=== PATIENT | female | born 1970 | race Caucasian/White ===

== ENCOUNTER 2016-12-16 16:29 | Inpatient (IN) | payer BC, MEDICARE, OTHER ==
--- NOTE | ~2016-12-16 | DS ---
Discharge Summary [place] [id number] [facility] [address] [facility] [address] NAME: AHMET CONNELL : 70 STATUS : DIS IN PAT#: [id number] AGE: 46 ADM/REG DATE : 12/16/16 MR#: [id number] REPORT SERV DATE: 12/20/16 DICTATED BY: DATE: REPORT STATUS : Draft TRANSCRIBED BY: MODL DATE: 12/19/16 ADMISSION DATE: 12/16/2016 DISCHARGE DATE: 12/19/2016 INCOMPLETE DICTATION CLR/JAC Robin Sultana NP / [id number] CC: MD Juan J Lazcano M.D.
--- NOTE | ~2016-12-16 | DS ---
Discharge Summary [facility] [address] [place]. [address] NAME: AHMET PRECIADO : 70 STATUS : DIS IN PAT#: [id number] AGE: 46 ADM/REG DATE : 12/16/16 MR#: [id number] REPORT SERV DATE: 12/22/16 DICTATED BY: DATE: REPORT STATUS : Draft TRANSCRIBED BY: MODL DATE: 12/19/16 ADMISSION DATE: 12/16/2016 DISCHARGE DATE: 12/19/2016 DISCHARGE DIAGNOSES: 1. Abdominal pain. 2. Diabetic gastroparesis. 3. Diabetes mellitus, type 2, this is uncontrolled with a hemoglobin A1c of 11.1. 4. Possible cellulitis around G-tube and J-tube. 5. Nausea and vomiting. CONSULTING PHYSICIANS: None. DISCHARGE MEDICATIONS: Include Cymbalta 60 mg p.o. daily, NovoLog sliding scale, Lantus 65 units subcu b.i.d., lithium carbonate ER 450 mg p.o. daily, Protonix 40 mg p.o. daily, Inderal 80 mg p.o. b.i.d., Xanax 2 mg p.o. t.i.d., Percocet 1 tablet p.o. three times daily p.r.n. for pain, Januvia 50 mg p.o. at bedtime. IMAGING: CT of the abdomen and pelvis with contrast, this did not demonstrate abscess around the G-tube or the J-tube, and otherwise, the CT scan was grossly normal. For full H and P, please refer to Dr. Dylan Oreilly's dictation on 12/16/2016. HOSPITAL COURSE/PROBLEM LIST: Initially, the patient was admitted with abdominal pain. She reported that she had some "pus" coming out her G-tube and J-tube sites and there was some redness. Dr. Oreilly noted in his H and P that the G-tube and J-tube sites had some fluid drainage around the hub of the tubes; however, there were no cellulitic changes in the abdominal wall. He did not note any pus either. During my physical exam over the course of her hospital stay, I did not note any pus either. She did have some redness at the site of her J-tube and G tube, but it was very localized, and as noted above, there was no abscess noted on the CT scan. She has been afebrile since admission as well as having a normal white count. Blood cultures were negative. She did have a wound culture of her G-tube that demonstrated Klebsiella pneumoniae, E. coli with ESBL as well as Staph species to be identified. The E. coli was multi-drug resistant, only susceptible to meropenem and amikacin. Since the patient did not have a fever, had a normal white blood cell count, and negative blood cultures, no other signs and symptoms of infection, I spoke with Dr. Abel Casarez with Infectious Disease. He concurred that it was likely a colonization and not causing an overt infection that it would be more harmful to the patient to start IV antibiotics than would be of benefit. So, the patient will follow up with her strip cutting machine operator, Dr. Guajardo at [facility]. We did consult strip cutting machine operator, Dr. Sagastume per the patient's request; however, she has been fired from his practice as well as multiple other practices for noncompliance. Yesterday, the patient developed severe nausea and vomiting. She was receiving Dilaudid IV for her abdominal pain. I discontinued this Dilaudid because I believe that it was worsening her gastroparesis and could have been the culprit for causing her nausea and vomiting. I also gave the patient Zofran IV as well as Compazine and finally Phenergan, which worked. She has not vomited since yesterday evening. Discharge Summary [address] [place]. [address] NAME: AHMET PRECIADO : 70 STATUS : DIS IN PAT#: [id number] AGE: 46 ADM/REG DATE : 12/16/16 MR#: [id number] REPORT SERV DATE: 12/22/16 DICTATED BY: DATE: REPORT STATUS : Draft TRANSCRIBED BY: MODL DATE: 12/19/16 The patient states that she feels better and would like to go home. As far as her diabetes mellitus, I checked an A1c, and it was 11.1. I discussed the importance of adhering to blood glucose control with the patient and explained that her gastroparesis would only get worse, and the myriad of other problems that an uncontrolled blood sugar can cause. She states understanding. I told the patient I wanted her to follow up with her primary care provider, Dr. Juan J Vazquez. She states that he would like to refer her to an iron guardrail installer. I encouraged her to make an appointment this week, she said it would not be a problem to get into his office. I also discussed the importance of cleaning around the sites of her G-tube and J-tube. It was explained to the patient that if she developed fevers, chills, nausea, and vomiting, to please return to the emergency department if needed. I will ask the unit controller to make an appointment with Dr. Guajardo for Ms. Preciado this week. She is hemodynamically stable at this time. Last blood pressure is 144/83, temperature 97.3, heart rate 69, respirations 12, O2 saturation 97% on room air. CLR/MODL Robin Sultana NP / [id number] CC: MD Juan J Lazcano M.D. Steven Kessler, MD
--- NOTE | ~2016-12-16 | HP ---
History And Physical [place] [address] [facility] [place]. [address] NAME: AHMET PRECIADO : 70 STATUS : ADM Bing PAT#: [id number] AGE: 46 ADM/REG DATE : 12/16/16 MR#: [id number] REPORT SERV DATE: 12/17/16 DICTATED BY: JAIR KESSLER DATE: 12/17/16 REPORT STATUS : Draft TRANSCRIBED BY: MODNeil DATE: 12/17/16 DATE OF ADMISSION: 12/16/2016 POINT OF ENTRY: [facility] Emergency Department. PRIMARY CARDIOTHORACIC ICU RN: Dr. Guajardo. CHIEF COMPLAINT: Abdominal pain and pus coming from around my G-tube. HISTORY OF PRESENT ILLNESS: Ms. Preciado is a 46-year-old female, well known to the Hospitalist Service with history of poorly-controlled insulin-dependent diabetes mellitus, type 2, with associated diabetic gastroparesis with chronic abdominal pain as well as gastrostomy and jejunostomy tube placement who presents to the emergency department with reports of a few day history of diffuse abdominal pain, also with associated pus coming from around her G- tube. The patient states she noted the pus coming from her G-tube about a few days ago. She denies any fevers, night sweats, or chills. She did not call any of her doctors thinking that she would "wait it out." Things did not improve prompting her presentation to the emergency department. The patient also notes some acute on chronic diffuse abdominal pain but denies any recent nausea or vomiting. Given the pus coming from her G-tube, she has not been using her J-tube for supplementary tube feedings; however, she does note she is still continuing to have gastric drainage from her G-tube, which she uses for gastric venting. Initial evaluation in the emergency department notable for vital signs that were unremarkable. Labs notable for a white count of 7000. However, blood sugar was elevated at 368. She was given a dose of vancomycin given her prior history of MRSA, admitted to the Hospitalist Service for further evaluation and management. Comprehensive review of systems otherwise negative unless listed in the history of present illness. PREVIOUS MEDICAL HISTORY: 1. Uncontrolled insulin-dependent diabetes mellitus type 2 with recent hemoglobin A1c of 10.4. 2. Diabetic gastroparesis requiring gastrostomy and jejunostomy tube placement. 3. Chronic abdominal pain. 4. History of drug-seeking behavior. 5. Bipolar disease. 6. Iron-deficiency anemia. 7. Anemia of chronic disease. 8. Hypertension. History And Physical [address] [address] NAME: AHMET PRECIADO : 70 STATUS : ADM Bing PAT#: [id number] AGE: 46 ADM/REG DATE : 12/16/16 MR#: [id number] REPORT SERV DATE: 12/17/16 DICTATED BY: JAIR KESSLER DATE: 12/17/16 REPORT STATUS : Draft TRANSCRIBED BY: MODNeil DATE: 12/17/16 9. Hyperlipidemia. 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 11.History of pancreatitis. 12.Depression. SURGICAL HISTORY: 1. Gastrostomy and jejunostomy tube placement and subsequent replacements for malfunction. 2. Abdominal hysterectomy and bilateral salpingo-oophorectomy. 3. Cholecystectomy. 4. Appendectomy. 5. Port-A-Cath placement. 6. Exploratory laparotomy and small-bowel resection for small bowel obstruction. ALLERGIES: 1. DEMEROL. 2. REGLAN. 3. TORADOL. 4. NSAIDS. 5. SULFA DRUGS. 6. MORPHINE. 7. DOXYCYCLINE. 8. RIFAMPIN. 9. ZOSYN. 10.LEVOFLOXACIN. 11.VANCOMYCIN. 12.STADOL. 13.IMITREX. HOME MEDICATIONS: 1. Xanax 2 mg t.i.d. 2. Cymbalta 60 mg daily. 3. Insulin sliding scale. 4. Lantus 65 units b.i.d. 5. [place] carbonate 450 mg daily. 6. Percocet 10/325 one tab t.i.d. 7. Protonix 40 mg daily. 8. Propranolol 80 mg b.i.d. 9. Januvia 50 mg at bedtime. SOCIAL HISTORY: Denies any tobacco, alcohol, or illicits. FAMILY HISTORY: Mother with pancreatic cancer. Father with history of congestive heart failure. LABS AND IMAGIN. White count 7.0, hemoglobin 9.5, hematocrit 29.8, and platelet count 261. 2. Sodium is 138, potassium 4.0, chloride 101, carbon dioxide 26, BUN 11, creatinine 0.86, History And Physical [address] [place]. [address] NAME: AHMET PRECIADO : 70 STATUS : ADM Bing PAT#: [id number] AGE: 46 ADM/REG DATE : 12/16/16 MR#: [id number] REPORT SERV DATE: 12/17/16 DICTATED BY: JAIR KESSLER DATE: 12/17/16 REPORT STATUS : Draft TRANSCRIBED BY: MODL DATE: 12/17/16 glucose is 360 and on recheck it is now 255, calcium is 8.5, protein 6.8, albumin is 3.1, bilirubin is 0.3, ALT is 15, AST 4, and alkaline phosphatase is 106. 3. Lipase is 200. 4. Lactic acid 2.3. 5. Urinalysis: Specific gravity is 1.023. No evidence of any infection. CT scan of the abdomen and pelvis shows no focal fluid collection. Does show postoperative bowel resections. No evidence of any obstruction. Did show a fatty liver as well as some right lower lobe airspace disease. Otherwise, no acute abdominopelvic pathology. PHYSICAL EXAMINATION: VITAL SIGNS: Temperature is 98.0 degrees Fahrenheit, pulse is 89, respirations 18, saturating 98% on room air. Blood pressure 120/75. GENERAL: The patient is slightly sedated and lethargic. She is a chronically ill-appearing female in no acute distress. Resting comfortably in bed. HEENT: Atraumatic and normocephalic. Moist mucous membranes. Pupils are equal, round, reactive to light and accommodation. Extraocular eye movements are intact. No scleral icterus. NECK: No jugular venous distention. No carotid bruits. CARDIAC: Regular rate and rhythm. No murmurs, rubs, or gallops. Normal S1, S2. LUNGS: Clear to auscultation bilaterally. No wheezes, rhonchi, or crackles. ABDOMEN: Hypoactive bowel sounds throughout. She is mildly tender to palpation over all quadrants. No rebound, guarding, or rigidity. She has a G-tube in place in the left upper quadrant and a J-tube in place in the left lower quadrant. Does have some apparent fluid around the hub of the G-tube but no surrounding cellulitic changes of the abdominal wall. EXTREMITIES: Warm and perfused. No cyanosis, clubbing, or edema. SKIN: Warm and dry. PSYCH: Affect is slightly sedated and lethargic. NEURO: Alert and oriented x3, however, sedated, lethargic, but answers questions well. Speech is somewhat slow. Cranial nerves 2 through 12 grossly intact. Speech is normal. Gait not assessed. ASSESSMENT: Ms. Preciado is a 46-year-old female who presents with abdominal pain, as well as purulent drainage from around her G-tube, concerning for possible G-tube infection. PROBLEM LIST: 1. Acute on chronic abdominal pain. 2. Possible G-tube infection. 3. Insulin-dependent diabetes mellitus type 2 with hyperglycemia. 4. Chronic abdominal pain with drug-seeking behavior. 5. Diabetic gastroparesis. PLAN: 1. Acute on chronic abdominal pain. We will continue the patient's home medications, and we will place her on some low-dose IV Dilaudid. However, we will not escalate any further at this time as she is currently sedated and lethargic after having received a total of 2 mg of Dilaudid as well as 50 mg of IV Benadryl and 12.[address] scan of pelvis was unremarkable. History And Physical [address] [address] NAME: AHMET PRECIADO : 70 STATUS : ADM Bing PAT#: [id number] AGE: 46 ADM/REG DATE : 12/16/16 MR#: [id number] REPORT SERV DATE: 12/17/16 DICTATED BY: JAIR KESSLER DATE: 12/17/16 REPORT STATUS : Draft TRANSCRIBED BY: JAC DATE: 12/17/16 2. Possible G-tube infection. The patient does have some purulent material from around her G-tube but no overlying skin changes concerning for abdominal wall cellulitis. We will follow up the blood as well as wound cultures, empirically place the patient on Rocephin and clindamycin given prior recent history of Klebsiella as well as MSSA wound culture results. 3. Insulin-dependent diabetes mellitus type 2 with hyperglycemia. The patient did receive 6 units of IV insulin in the emergency department with improvement of blood sugars to 255. We will continue the patient's long-acting insulin. Place her on a level 2 insulin sliding scale. 4. DVT prophylaxis. Lovenox subcu. CODE STATUS: The patient wished to be full code. JCB/MODL Jair Kessler MD / [id number] CC: MD Juan J Lazcano M.D.
[~2016-12-16 16:29] MED LIST: ACIDOPHILU2 PO; ALBUTEROL5 INH; AMARYL1 MG PO; AMIT50 PO; APRES50 PO; ASACOL PO; ATEN50 PO; BACTROCR TOP; BACTROINT TOP; BACTRONASA TOP; BALMEX11.3 % TOP; BUSPAR15 M1 PO; CANASA1SUP PR; CHLORDIAZEPOXIDE OR; CHLORPROMAZ200 MG PO; CLIDINIUM OR; COGEN1 PO; CPZ100 PO; CRESTOR5 MG PO; CYMBALTA20 PO; CYMBALTA60 PO; DIARRHEA MED; DIL2TAB PO; DIL4TAB PO; DOXYCYCL HYC100 M3 PO; DSS PO; DURA75 TOP; ENDOCET1 TA3 PO; ERYTHROCIN250 MG PO; ESKACR PO; ESTRADERM0.1 MG TOP; FARXIGA10 PO; FISH-EPA1000 MG PO; FLAG500TAB PO; FLORASTOR250 MG PO; FLUCON1 PO; FLUCON2 PO; GLUCOPHAGE1000 MG PO; GLUCPH PO; GLUCXL2.5 PO; H5 PO; HUMULIN R1 ML SC; HYCODAN1 M1 PO; HYDRALAZINE; HYDROCORT12 TOP; HYDROXYZ HCL25 MG OR; HYOMAX-FT0.125 MG PO; I40 PO; IMOD PO; INDE60 PO; INDE80 PO; ISOPTINSR PO; JANUVIA100 MG PO; JANUVIA50 PO; KADIAN10 MG PO; KLONO1 PO; KLONO5 PO; LANTUS SC; LANTUSCART SC; LEVEMIR SC; LEVSINTAB PO; LEVSINTAB SL; LIBRAX PO; LIPITOR20 PO; LISINOPRIL/HCTZ; LISINOPRIL40 MG PO; LOMOTILUDL PO; LOPID6 PO; MACROBID PO; MAGOX4 PO; MARI2.5 PO; MARINOL10 MG PO; MYCOSCROI TOP; NEUR100 PO; NEUR300 PO; NEUR600 PO; NEXIUM40 PO; NOVOLOG SC; NOVOPEN SC; OMNICEF300 PO; OPANA ER15 MG PO; OXYCCODUDL PO; OXYCOD PO; OXYCON10 PO; P10 PO; PCET PO; PERCOCET 10/3251 TAB PO; PERCOCET1 TA2 PO; PERCOCET1 TA4 PO; PHENERGAN PO; PR12.5R PR; PR25 PO; PREV30 PO; PRILOSEC40 MG PO; PRIN10 PO; PRIN20 PO; PRIN5 PO; PROTONIX PO; QUESTRAN4 GM PO; REG PO; REM15 PO; REMERON30 MG PO; RESTORIL30 MG PO; RIFADIN150 MG PO; ROBINUL FORT2 MG PO; ROXICODONE15 MG PO; ROXICODONE30 MG PO; SENTAB PO; SEROQUEL25 PO; SEROQUEL50 MG PO; SUDAFED 12HR120 MG PO; SYMM100 PO; T PO; TESSALON200 MG PO; THORAZINE 50 MG50 MG PO; TRANSSCOP TOP; V120 PO; VANCO500 IV; VERELAN240 MG PO; VIB100 PO; VICODINTAB PO; VIVELLE DOT; VIVELLE SY0.1 MG/24 TOP; VIVELLE-DOT0.0375 MG TOP; VIVELLE-DOT0.1 MG TOP; X5 PO; XANAX1 MG PO; XANAX2 MG PO; XARELTO20 MG PO; ZESTORETIC PO; ZESTORETIC1 TA1 PO; ZESTORETIC1 TAB PO; ZESTRIL5 MG PO; ZETIA; ZETIA PO; ZOFRAN ODT4 MG PO; ZOFRAN4 PO; ZOL100 PO; [UNRECOGNIZED DRUG - CODE] PO; [UNRECOGNIZED DRUG - OTHER] PO
[2016-12-16 17:53] LABS: ASCORBIC ACID (UR NOT ORDER) NEG (NEG); BILIRUBIN, URINE NEGATIVE (NEG); ER URINALYSIS TAT 0 Hrs 07 Mins; KETONE, URINE NEGATIVE (NEG); LEUKOCYTE ESTERASE(NOT OR NEG (NEG); NITRITE (URINE) NEG (NEG); WBC (NOT ORDERED) (RFLEX) < 1 (0-5)
[2016-12-16 21:10] LABS: BASOPHILS 0.1 %; BASOPHILS ABSOLUTE 0.01 10/3/uL (0.0-0.16); EOSINOPHILS ABSOLUTE 0.14 10/3/uL (0.0-0.53); HEMATOCRIT 29.8 % (36.0-48.0); HEMOGLOBIN 9.5 g/dL (12.0-16.0); IMMATURE GRANULOCYTES 0.1 %; IMMATURE GRANULOCYTES ABSOLUTE 0.01 10/3/uL (0.0-0.11); LYMPHOCYTES 28.9 %; LYMPHOCYTES ABSOLUTE 2.01 10/3/uL (0.67-4.30); MEAN CORPUS HGB CONC 31.9 g/dL (32.0-36.0); MEAN CORPUSCULAR HEMOGLOB 26.8 pg (26.0-34.0); MEAN CORPUSCULAR VOLUME 83.9 fL (80-100); MONOCYTES ABSOLUTE 0.21 10/3/uL (0.21-1.20); NEUTROPHILS 65.9 %; NEUTROPHILS ABSOLUTE 4.58 10/3/uL (2.02-8.40); RBC DISTRIBUTION WIDTH 15.7 % (12.0-16.0); RED CELL COUNT 3.55 10/6/uL (4.0-5.6)
[2016-12-16 21:11] LABS: ER CBC TAT 0 Hrs 07 Mins; MANUAL DIFF NO %; PLATELET COUNT 261 10/3/uL (150-400)
[2016-12-16 21:15] LABS: LACTATE 2.3 MMOL/L (0.3-2.4)
[2016-12-16 21:26] LABS: A/G RATIO 0.8 (0.7-1.9); ALBUMIN 3.1 G/DL (3.5-5.0); CALCIUM, SERUM 8.5 MG/DL (8.5-10.4); CHLORIDE, SERUM 101 MMOL/L (96-112); CREATININE 0.86 MG/DL (0.55-1.02); GFR AFRICAN AMERICAN 94 ML/MIN (>=60); GFR NON AFRICAN AMERICAN 81 ML/MIN (>=60); GLOBULIN 3.7 G/DL (2.5-4.1); SGOT(AST) 4 U/L (5-40); SGPT(ALT) 15 U/L (5-65); SODIUM, SERUM 138 MMOL/L (135-148); TOTAL BILIRUBIN 0.3 MG/DL (0-1.2); TOTAL PROTEIN 6.8 G/DL (6.0-8.5)
[2016-12-16 21:27] LABS: ALKALINE PHOSPHATASE 106 U/L (45-117); BUN (BLOOD UREA NITROGEN) 11 MG/DL (6-23); CO2 (CARBON DIOXIDE) 26 MMOL/L (24-34); GLUCOSE, SERUM 368 MG/DL (60-99)
[2016-12-16] MEDS ORDERED: JANUVIA50 PO (22:30)
[2016-12-17 07:09] LABS: BASOPHILS 0.2 %; BASOPHILS ABSOLUTE 0.01 10/3/uL (0.0-0.16); EOSINOPHILS ABSOLUTE 0.17 10/3/uL (0.0-0.53); HEMATOCRIT 29.1 % (36.0-48.0); HEMOGLOBIN 9.2 g/dL (12.0-16.0); LYMPHOCYTES 36.5 %; LYMPHOCYTES ABSOLUTE 2.09 10/3/uL (0.67-4.30); MANUAL DIFF NO %; MEAN CORPUS HGB CONC 31.6 g/dL (32.0-36.0); MEAN CORPUSCULAR HEMOGLOB 26.7 pg (26.0-34.0); MEAN CORPUSCULAR VOLUME 84.3 fL (80-100); MEAN PLATELET VOLUME 9.7 fL (9.2-13.0); MONOCYTES 4.9 %; MONOCYTES ABSOLUTE 0.28 10/3/uL (0.21-1.20); NEUTROPHILS 55.4 %; NEUTROPHILS ABSOLUTE 3.17 10/3/uL (2.02-8.40); PLATELET COUNT 229 10/3/uL (150-400); RBC DISTRIBUTION WIDTH 15.8 % (12.0-16.0); RED CELL COUNT 3.45 10/6/uL (4.0-5.6); WHITE BLOOD CELLS 5.7 10/3/uL (4.5-10.5)
[2016-12-17 07:22] LABS: CALCIUM, SERUM 8.1 MG/DL (8.5-10.4); CHLORIDE, SERUM 105 MMOL/L (96-112); CO2 (CARBON DIOXIDE) 26 MMOL/L (24-34); CREATININE 0.79 MG/DL (0.55-1.02); GFR AFRICAN AMERICAN 104 ML/MIN (>=60); GFR NON AFRICAN AMERICAN 90 ML/MIN (>=60); POTASSIUM, SERUM 3.8 MMOL/L (3.5-5.3); SODIUM, SERUM 142 MMOL/L (135-148)
[2016-12-17 07:23] LABS: BUN (BLOOD UREA NITROGEN) 7 MG/DL (6-23); GLUCOSE, SERUM 248 MG/DL (60-99)
[2016-12-18 06:12] LABS: BASOPHILS 0.2 %; BASOPHILS ABSOLUTE 0.01 10/3/uL (0.0-0.16); HEMOGLOBIN 9.1 g/dL (12.0-16.0); IMMATURE GRANULOCYTES 0.2 %; IMMATURE GRANULOCYTES ABSOLUTE 0.01 10/3/uL (0.0-0.11); LYMPHOCYTES 40.1 %; MEAN CORPUS HGB CONC 31.4 g/dL (32.0-36.0); MEAN CORPUSCULAR HEMOGLOB 26.6 pg (26.0-34.0); MEAN CORPUSCULAR VOLUME 84.8 fL (80-100); MEAN PLATELET VOLUME 9.3 fL (9.2-13.0); MONOCYTES 5.2 %; MONOCYTES ABSOLUTE 0.26 10/3/uL (0.21-1.20); NEUTROPHILS 50.3 %; NEUTROPHILS ABSOLUTE 2.51 10/3/uL (2.02-8.40); PLATELET COUNT 233 10/3/uL (150-400); RBC DISTRIBUTION WIDTH 15.5 % (12.0-16.0); RED CELL COUNT 3.42 10/6/uL (4.0-5.6)
[2016-12-18 06:13] LABS: MANUAL DIFF NO %
[2016-12-18 06:23] LABS: BUN (BLOOD UREA NITROGEN) 4 MG/DL (6-23); CALCIUM, SERUM 8.1 MG/DL (8.5-10.4); CHLORIDE, SERUM 109 MMOL/L (96-112); CO2 (CARBON DIOXIDE) 27 MMOL/L (24-34); CREATININE 0.72 MG/DL (0.55-1.02); GFR AFRICAN AMERICAN 116 ML/MIN (>=60); GFR NON AFRICAN AMERICAN 100 ML/MIN (>=60); SODIUM, SERUM 144 MMOL/L (135-148)
[2016-12-18 06:26] LABS: GLUCOSE, SERUM 76 MG/DL (60-99); POTASSIUM, SERUM 3.6 MMOL/L (3.5-5.3)
== END 2016-12-19 13:51 | disposition home or self-care (01) | DRG 394 ==
LOC: ER 16:29 → 7NO 23:59
PROVIDERS: Emergency Medicine; Internal Medicine; Nurse Practitioner Acute Care
DX: K94.22 Gastrostomy infection (principal); L03.311 Cellulitis of abdominal wall; K31.84 Gastroparesis; E11.43 Type 2 diabetes mellitus with diabetic autonomic (poly)neuropathy; E11.65 Type 2 diabetes mellitus with hyperglycemia; Z79.4 Long term (current) use of insulin; D50.9 Iron deficiency anemia, unspecified; D63.8 Anemia in other chronic diseases classified elsewhere; F31.9 Bipolar disorder, unspecified; Z90.710 Acquired absence of both cervix and uterus; Z88.5 Allergy status to narcotic agent; Z88.6 Allergy status to analgesic agent; Z88.2 Allergy status to sulfonamides; Z88.8 Allergy status to other drugs, medicaments and biological substances; Z90.49 Acquired absence of other specified parts of digestive tract
CPT/HCPCS: 74177; 80048; 80053; 81001; 82962; 83036; 83605; 83690; 85025; 87040; 87070; 87077; 87186; 87205; 96365; 96366; 96375; 99285; A9270-GY; J0780; J1170; J1200; J2405; J2550; J3370; Q9967

== ENCOUNTER 2016-12-20 05:19 | Emergency (ER) | payer BC, MEDICARE ==
[2016-12-20 06:42] LABS: BASOPHILS 0.2 %; BASOPHILS ABSOLUTE 0.01 10/3/uL (0.0-0.16); EOSINOPHILS 3.4 %; EOSINOPHILS ABSOLUTE 0.19 10/3/uL (0.0-0.53); ER CBC TAT 0 Hrs 07 Mins; HEMATOCRIT 26.9 % (36.0-48.0); HEMOGLOBIN 8.6 g/dL (12.0-16.0); LYMPHOCYTES 32.2 %; LYMPHOCYTES ABSOLUTE 1.82 10/3/uL (0.67-4.30); MANUAL DIFF NO %; MEAN CORPUSCULAR HEMOGLOB 26.3 pg (26.0-34.0); MEAN CORPUSCULAR VOLUME 82.3 fL (80-100); MEAN PLATELET VOLUME 9.4 fL (9.2-13.0); MONOCYTES 3.9 %; MONOCYTES ABSOLUTE 0.22 10/3/uL (0.21-1.20); NEUTROPHILS 60.3 %; NEUTROPHILS ABSOLUTE 3.42 10/3/uL (2.02-8.40); PLATELET COUNT 222 10/3/uL (150-400); RBC DISTRIBUTION WIDTH 15.4 % (12.0-16.0); RED CELL COUNT 3.27 10/6/uL (4.0-5.6); WHITE BLOOD CELLS 5.7 10/3/uL (4.5-10.5)
[2016-12-20 06:47] LABS: INTERNATIONAL NORMAL RATI 1.1 UNITS (-); PROTIME (NOT ORD) 13.9 SEC (12.0-14.5)
[2016-12-20 06:48] LABS: PARTIAL THROMBO TIME 89.3 SEC (22.5-37.2)
[2016-12-20 06:57] LABS: ACETONE NEG
[2016-12-20 07:00] LABS: LACTATE 2.7 MMOL/L (0.3-2.4)
[2016-12-20 07:06] LABS: ALBUMIN 2.8 G/DL (3.5-5.0); BUN (BLOOD UREA NITROGEN) 2 MG/DL (6-23); CALCIUM, SERUM 8.5 MG/DL (8.5-10.4); CHLORIDE, SERUM 104 MMOL/L (96-112); CO2 (CARBON DIOXIDE) 26 MMOL/L (24-34); CREATININE 0.82 MG/DL (0.55-1.02); GFR AFRICAN AMERICAN 99 ML/MIN (>=60); GFR NON AFRICAN AMERICAN 86 ML/MIN (>=60); POTASSIUM, SERUM 3.7 MMOL/L (3.5-5.3); SGOT(AST) 7 U/L (5-40); SGPT(ALT) 17 U/L (5-65); SODIUM, SERUM 140 MMOL/L (135-148); TOTAL BILIRUBIN 0.4 MG/DL (0-1.2); TOTAL PROTEIN 6.1 G/DL (6.0-8.5); TROPONIN I <0.02 NG/ML (<0.05)
[2016-12-20 07:10] LABS: ALKALINE PHOSPHATASE 81 U/L (45-117); CHEST PAIN PROFILE TAT 0 Hrs 31 Mins; DIRECT BILIRUBIN 0.1 MG/DL (0.0-0.4); GLUCOSE, SERUM 304 MG/DL (60-99); INDIRECT BILIRUBIN(NOT ORDER) 0.3 MG/DL (0.1-0.9)
[2016-12-20 07:25] LABS: SED RATE 60 MM/HR (0-20)
== END 2016-12-20 07:42 | disposition left against medical advice (07) ==
LOC: ER 05:19
PROVIDERS: Nurse Practitioner
DX: R53.1 Weakness (principal); I10 Essential (primary) hypertension; K21.9 Gastro-esophageal reflux disease without esophagitis; E11.9 Type 2 diabetes mellitus without complications; F31.9 Bipolar disorder, unspecified; D64.9 Anemia, unspecified; Z88.6 Allergy status to analgesic agent; Z88.2 Allergy status to sulfonamides; Z88.8 Allergy status to other drugs, medicaments and biological substances; Z79.4 Long term (current) use of insulin; Z79.899 Other long term (current) drug therapy; W19.XXXA Unspecified fall, initial encounter
CPT/HCPCS: 70450; 80048; 80076; 82009; 83605; 83690; 83735; 84443; 84484; 85025; 85610; 85652; 85730; 86308; 93005; 96374; 99284; J1200; J1980; J2550

== ENCOUNTER 2017-01-18 09:36 | Inpatient (IN) | payer BC, MEDICARE, OTHER ==
--- NOTE | ~2017-01-18 | DS ---
Discharge Summary [facility] [address] [facility] [place]. [address] NAME: AHMET CONNELL : 70 STATUS : DIS IN PAT#: [id number] AGE: 46 ADM/REG DATE : 01/18/17 MR#: [id number] REPORT SERV DATE: 01/23/17 DICTATED BY: EDDIE MASCORRO DATE: 01/22/17 REPORT STATUS : Draft TRANSCRIBED BY: MODNeil DATE: 01/22/17 ADMISSION DATE: 01/18/2017 DISCHARGE DATE: 01/22/2017 DISCHARGE DIAGNOSES: 1. Acute exacerbation of gastroparesis, mild elevation in lipase without evidence of pancreatitis. 2. Uncontrolled type 1 diabetes mellitus with a hemoglobin A1c of 11. 3. Chronic abdominal pain. 4. Drug-seeking behavior. 5. Bipolar disorder. 6. Iron deficiency anemia. 7. Anemia of chronic disease. 8. Hypertension. 9. Hyperlipidemia. 10.History of pancreatitis in the past. 11.Depression. CONSULTANTS DURING THIS HOSPITALIZATION: None. INVASIVE PROCEDURES DONE DURING THIS HOSPITALIZATION: None. BRIEF HISTORY OF PRESENT ILLNESS: The patient is a 46-year-old female who presented to [facility] with abdominal pain, nausea, vomiting, and a very complicated medical history, so she was admitted. For detailed history and physical exam, please see note dictated by Dr. Zack Newton on 01/18/2017. HOSPITAL COURSE: After being admitted to the hospital, this patient initially was thought to have pancreatitis due to elevation in her lipase. CT of the abdomen did not reveal pancreatitis. This patient had continued abdominal pain, nausea, vomiting, and no significant findings. Her J tube and G tubes were normal position. There was no evidence of any infection. We continued her other medications. We gave her IV Reglan, IV Zithromax, and IV Protonix. This patient continued to improve as we rested her bowel. Now, she is tolerating small meals, but multiple times during the daytime. All her lab work has remained stable. There is practically no output from her G tube and she feels well enough that she could be discharged in the home setting and follow up with her primary care physician. DISCHARGE DISPOSITION: Home. DISCHARGE ACTIVITY: As tolerated. DISCHARGE DIET: Small meals multiple times a day. DISCHARGE MEDICATIONS: Xanax 2 mg three times daily, Cymbalta 120 mg once daily, NovoLog subcutaneously sliding scale, Lantus 60 units twice daily, lithium 450 mg once daily, Dis[facility] [address] [address] NAME: AHMET CONNELL : 70 STATUS : DIS IN PAT#: [id number] AGE: 46 ADM/REG DATE : 01/18/17 MR#: [id number] REPORT SERV DATE: 01/23/17 DICTATED BY: EDDIE MASCORRO DATE: 01/22/17 REPORT STATUS : Draft TRANSCRIBED BY: JAC DATE: 01/22/17 propranolol 40 mg twice daily, and Percocet 10/325 one tablet four times daily p.r.n. for pain. DISCHARGE FOLLOWUP: With Dr. Juan J Vazquez as scheduled previously. More than 30 minutes spent planning this patient's discharge, reconciling medications, discussing hospital care, and followup with the patient and documenting this discharge. KEYSHA/JAC Eddie Mascorro M.D. / [id number] CC: Jennifer Holloway M.D.
--- NOTE | ~2017-01-18 | HP ---
History And Physical [place] [id number] [facility] [place]. [address] NAME: AHMET PRECIADO : 70 STATUS : ADM Bing PAT#: [id number] AGE: 46 ADM/REG DATE : 01/18/17 MR#: [id number] REPORT SERV DATE: 01/19/17 DICTATED BY: DATE: REPORT STATUS : Draft TRANSCRIBED BY: MODL DATE: 01/18/17 DATE OF ADMISSION: 01/18/2017 The patient is admitted to the [facility] Hospitalist Service. Attending Dr. Zack Newton. CHIEF COMPLAINT: Abdominal pain, nausea, and vomiting. HISTORY OF PRESENT ILLNESS: Ms. Preciado is a 46-year-old white female with longstanding history of uncontrolled insulin-dependent diabetes and diabetic gastroparesis. She has a history of chronic abdominal pain. She has a GJ tube in place, and utilizes this for nocturnal feedings as she experiences frequent symptoms related to gastroparesis that would prevent her from meeting her nutritional needs adequately. She is well known to the hospitalist service here for frequent admissions for diabetic gastroparesis exacerbation. The patient was last admitted to the hospital in 12/2016, discharged on 12/19/2016 with a diabetic gastroparesis exacerbation. The patient reports that she was doing well for the most recent two weeks, although several days ago began developing left-sided abdominal pain rated in intensity as 10/10 with no precipitating and no alleviating factors. She states this is worse than her normal gastroparesis pain which is typically more diffuse. She then developed profuse nausea, vomiting, and four episodes of hematemesis described as bright red blood streaking, otherwise clear vomit, starting this morning. She sought care at the emergency department after Phenergan and Percocet taken at home failed to relieve her symptoms. She reports that her blood sugars recently have been ranging between 290 and 370. She has been feeling generally weak, but has no other specific symptoms such as fevers, chills, chest pain, shortness of breath, cough, or difficulties with urination. Her last bowel movement was yesterday and was normal - no diarrhea, no melena, no hematochezia. In the emergency department, her lipase was found to be mildly elevated at 1000, and CT scan was not suggestive of any acute intraabdominal process. However, emergency department physician requested admission to the Hospitalist Service because of the refractory nature of patient's symptoms and for concern of early pancreatitis. The patient has had four episodes of pancreatitis in the past and she states "it feels just like all the other times." REVIEW OF SYSTEMS: Full 14-point review of systems is negative except as dictated in the history of present illness. Primary care provider is Juan J Vazquez M.D. The patient's current continuous improvement consultant is Damian Guajardo at [facility]. She has been terminated by many [facility] gastroenterologists in the past for noncompliance. PAST MEDICAL HISTORY: History And Physical [address] [address] NAME: AHMET PRECIADO : 70 STATUS : ADM Bing PAT#: [id number] AGE: 46 ADM/REG DATE : 01/18/17 MR#: [id number] REPORT SERV DATE: 01/19/17 DICTATED BY: DATE: REPORT STATUS : Draft TRANSCRIBED BY: MODL DATE: 01/18/17 1. Uncontrolled insulin-dependent diabetes mellitus type 2 with recent hemoglobin A1c of 11. 2. Diabetic gastroparesis requiring GJ tube placement, and tube feeds. 3. Chronic abdominal pain. 4. History of drug-seeking behavior. 5. Bipolar disorder. 6. Iron deficiency anemia. 7. Anemia of chronic disease. 8. Hypertension. 9. Hyperlipidemia. 10.History of a mitral valve mass-anticoagulated with Xarelto in the past. No longer requiring anticoagulation. 11.History of pancreatitis. 12.Depression. 13.Port-A-Cath infections. PAST SURGICAL HISTORY: 1. Includes GJ tube placement and many subsequent replacements for malfunction. 2. Abdominal hysterectomy and bilateral salpingo-oophorectomy. 3. Cholecystectomy. 4. Appendectomy. 5. Port-A-Cath placement. 6. Exploratory laparotomy and small bowel resection for small bowel obstruction. ALLERGIES: INCLUDE DEMEROL, REGLAN, TORADOL, NONSTEROIDAL ANTI-INFLAMMATORIES, SULFA, MORPHINE, DOXYCYCLINE, RIFAMPIN, ZOSYN, LEVAQUIN, VANCOMYCIN, STADOL, AND IMITREX. HOME MEDICATIONS: Include: 1. Xanax 2 mg p.o. t.i.d. 2. Cymbalta 60 mg p.o. daily. 3. Insulin sliding scale subcu q.a.c. t.i.d. 4. Lantus 60 units p.o. b.i.d. 5. [place] 450 mg p.o. daily. 6. Percocet 10/325 mg one tablet p.o. t.i.d. 7. Propranolol 80 mg p.o. twice a day. SOCIAL HISTORY: The patient has grown children and denies any tobacco, alcohol, or illicit substance use. FAMILY HISTORY: Pertinent for pancreatic cancer in her mother and congestive heart failure in her father. PHYSICAL EXAMINATION: VITAL SIGNS: Blood pressure 130/70, respiratory rate 12, oxygen saturation 96% on room air, temperature is 98.4, and pulse is 80. GENERAL: This is a well-developed, well-nourished white female, in no acute distress. Alert and oriented in three dimensions. History And Physical [address] [address] NAME: AHMET PRECIADO : 70 STATUS : ADM Bing PAT#: [id number] AGE: 46 ADM/REG DATE : 01/18/17 MR#: [id number] REPORT SERV DATE: 01/19/17 DICTATED BY: DATE: REPORT STATUS : Draft TRANSCRIBED BY: MODL DATE: 01/18/17 HEENT: Normocephalic, atraumatic. Pupils are equally round and reactive to light. No scleral icterus. No conjunctival pallor. No sinus tenderness to palpation. No nasal drainage. Oropharynx is moist and pink with no posterior pharyngeal erythema or exudate. NECK: Supple. No jugular venous distention. No lymphadenopathy. No bruits. CARDIOVASCULAR: Regular rate and rhythm. No murmurs, rubs or gallops. LUNGS: Clear to auscultation bilaterally. No wheezes, crackles, or rhonchi. ABDOMEN: Soft, diffusely tender to palpation, particularly in the epigastrium. Positive bowel sounds in four quadrants with no evidence of hepatosplenomegaly. G-tube and J-tube demonstrate some mucoid discharge which is nonodorous and there is no surrounding erythema. EXTREMITIES: No cyanosis, clubbing, or edema. SKIN: Normal skin turgor. No rash or skin breakdown. NEUROLOGIC: Cranial nerves II through XII are tested and are intact. Deep tendon reflexes 2+ bilateral brachioradialis and patellar tendons. Sensation intact to fine touch and temperature in all four limbs. Strength is 5/5 bilateral upper and lower extremities. LABORATORY DATA: Urinalysis is normal. White blood cell count 5.4, hemoglobin 10.3, hematocrit 31.4. Platelets 195. INR 1.1. Sodium 139, potassium 4.0, chloride 102, bicarb 26, BUN 7, creatinine 0.86, glucose 446 - repeat is 370, calcium 9.3, magnesium 1.8. Lipase 1070. Troponin negative. IMAGIN. Portable chest x-ray shows no acute process by my read. Port-A-Cath. 2. CT of abdomen and pelvis without contrast for abdominal pain shows no definite acute abnormality. Hepatic steatosis. No biliary ductal dilatation. Surgical changes of the proximal small bowel. G-tube and J-tube in good position. No pericecal inflammatory change. Moderately distended urinary bladder. Prior hysterectomy. IMPRESSION: 1. Abdominal pain, nausea, vomiting, and scant hematemesis, differential diagnosis including gastroparesis exacerbation, peptic ulcer disease, Tania-Wong tear, or possible early pancreatitis. 2. Elevated lipase, possibly due to nausea and vomiting versus early pancreatitis. 3. Insulin-dependent diabetes mellitus type 2, uncontrolled. 4. Bipolar disorder. 5. History of migraines. 6. History of narcotic dependence and drug-seeking behavior. PLAN: 1. Observation admission to [address] [place] [address], [address] Zack Newton. 2. Conservative management including good rest, clear liquids, IV fluids, IV antiemetics, pain medications. IV pain medications will be utilized sparingly given concomitant gastroparesis. 3. IV Protonix, IV erythromycin for promotility. 4. Blood sugar control with Levemir and sliding scale insulin, no indication for an insulin drip at present. 5. Hold tube feeds for now. 6. Recheck labs in the morning, and obtain a lithium level now. History And Physical [address] [address] NAME: AHMET PRECIADO : 70 STATUS : ADM Bing PAT#: [id number] AGE: 46 ADM/REG DATE : 01/18/17 MR#: [id number] REPORT SERV DATE: 01/19/17 DICTATED BY: DATE: REPORT STATUS : Draft TRANSCRIBED BY: MODL DATE: 01/18/17 7. Home medications have been continued. 8. If GI consultation is required for consideration of endoscopy this admission, the patient may require transfer to her continuous improvement consultant at [facility], Dr. Guajardo. Presently, we will attempt management with conservative measures only. 9. DVT prophylaxis. JOSÉ MIGUEL/JAC Zack Newton M.D. / [id number] CC: Jennifer Reid M.D.
[2017-01-18 11:25] LABS: ASCORBIC ACID (UR NOT ORDER) NEG (NEG); BILIRUBIN, URINE NEGATIVE (NEG); ER URINALYSIS TAT 0 Hrs 10 Mins; KETONE, URINE NEGATIVE (NEG); LEUKOCYTE ESTERASE(NOT OR NEG (NEG); NITRITE (URINE) NEG (NEG); WBC (NOT ORDERED) (RFLEX) 2 (0-5)
[2017-01-18 12:26] LABS: BASOPHILS 0.2 %; BASOPHILS ABSOLUTE 0.01 10/3/uL (0.0-0.16); EOSINOPHILS 3.7 %; HEMOGLOBIN 10.3 g/dL (12.0-16.0); IMMATURE GRANULOCYTES 0.2 %; IMMATURE GRANULOCYTES ABSOLUTE 0.01 10/3/uL (0.0-0.11); LYMPHOCYTES 31.9 %; LYMPHOCYTES ABSOLUTE 1.72 10/3/uL (0.67-4.30); MEAN CORPUS HGB CONC 32.8 g/dL (32.0-36.0); MEAN CORPUSCULAR VOLUME 82.4 fL (80-100); MONOCYTES 3.9 %; MONOCYTES ABSOLUTE 0.21 10/3/uL (0.21-1.20); NEUTROPHILS 60.1 %; NEUTROPHILS ABSOLUTE 3.25 10/3/uL (2.02-8.40); PLATELET COUNT 195 10/3/uL (150-400); RBC DISTRIBUTION WIDTH 15.8 % (12.0-16.0); RED CELL COUNT 3.81 10/6/uL (4.0-5.6); WHITE BLOOD CELLS 5.4 10/3/uL (4.5-10.5)
[2017-01-18 12:27] LABS: HEMATOCRIT 31.4 % (36.0-48.0); MANUAL DIFF NO %
[2017-01-18 12:32] LABS: INTERNATIONAL NORMAL RATI 1.1 UNITS (-); PROTIME (NOT ORD) 13.9 SEC (12.0-14.5)
[2017-01-18 12:40] LABS: BUN (BLOOD UREA NITROGEN) 7 MG/DL (6-23); CALCIUM, SERUM 9.3 MG/DL (8.5-10.4); CHEST PAIN PROFILE TAT 0 Hrs 20 Mins; CHLORIDE, SERUM 102 MMOL/L (96-112); CO2 (CARBON DIOXIDE) 26 MMOL/L (24-34); CREATININE 0.86 MG/DL (0.55-1.02); GFR AFRICAN AMERICAN 94 ML/MIN (>=60); GFR NON AFRICAN AMERICAN 81 ML/MIN (>=60); GLUCOSE, SERUM 446 MG/DL (60-99); SODIUM, SERUM 139 MMOL/L (135-148); TROPONIN I <0.02 NG/ML (<0.05)
[2017-01-19 10:43] LABS: BASOPHILS 0.2 %; BASOPHILS ABSOLUTE 0.01 10/3/uL (0.0-0.16); EOSINOPHILS 4.3 %; EOSINOPHILS ABSOLUTE 0.26 10/3/uL (0.0-0.53); HEMATOCRIT 30.2 % (36.0-48.0); HEMOGLOBIN 9.6 g/dL (12.0-16.0); IMMATURE GRANULOCYTES 0.3 %; IMMATURE GRANULOCYTES ABSOLUTE 0.02 10/3/uL (0.0-0.11); LYMPHOCYTES 21.7 %; LYMPHOCYTES ABSOLUTE 1.32 10/3/uL (0.67-4.30); MEAN CORPUS HGB CONC 31.8 g/dL (32.0-36.0); MEAN CORPUSCULAR HEMOGLOB 26.4 pg (26.0-34.0); MEAN CORPUSCULAR VOLUME 83.2 fL (80-100); MEAN PLATELET VOLUME 9.9 fL (9.2-13.0); MONOCYTES 3.3 %; NEUTROPHILS 70.2 %; NEUTROPHILS ABSOLUTE 4.26 10/3/uL (2.02-8.40); PLATELET COUNT 199 10/3/uL (150-400); RBC DISTRIBUTION WIDTH 15.8 % (12.0-16.0); RED CELL COUNT 3.63 10/6/uL (4.0-5.6); WHITE BLOOD CELLS 6.1 10/3/uL (4.5-10.5)
[2017-01-19 10:44] LABS: MANUAL DIFF NO %
[2017-01-19 10:55] LABS: BUN (BLOOD UREA NITROGEN) 4 MG/DL (6-23); CHLORIDE, SERUM 108 MMOL/L (96-112); CO2 (CARBON DIOXIDE) 25 MMOL/L (24-34); CREATININE 0.78 MG/DL (0.55-1.02); GFR AFRICAN AMERICAN 106 ML/MIN (>=60); GFR NON AFRICAN AMERICAN 91 ML/MIN (>=60); POTASSIUM, SERUM 3.5 MMOL/L (3.5-5.3); SODIUM, SERUM 144 MMOL/L (135-148)
[2017-01-19 10:56] LABS: GLUCOSE, SERUM 223 MG/DL (60-99)
[2017-01-20 06:55] LABS: A/G RATIO 0.8 (0.7-1.9); ALBUMIN 2.6 G/DL (3.5-5.0); BUN (BLOOD UREA NITROGEN) 2 MG/DL (6-23); CHLORIDE, SERUM 113 MMOL/L (96-112); CO2 (CARBON DIOXIDE) 25 MMOL/L (24-34); CREATININE 0.78 MG/DL (0.55-1.02); GFR AFRICAN AMERICAN 106 ML/MIN (>=60); GFR NON AFRICAN AMERICAN 91 ML/MIN (>=60); GLOBULIN 3.3 G/DL (2.5-4.1); SGPT(ALT) 11 U/L (5-65); SODIUM, SERUM 146 MMOL/L (135-148); TOTAL BILIRUBIN 0.4 MG/DL (0-1.2); TOTAL PROTEIN 5.9 G/DL (6.0-8.5)
[2017-01-20 06:57] LABS: ALKALINE PHOSPHATASE 65 U/L (45-117); GLUCOSE, SERUM 89 MG/DL (60-99); POTASSIUM, SERUM 3.6 MMOL/L (3.5-5.3); SGOT(AST) 19 U/L (5-40)
[2017-01-20 08:33] LABS: BASOPHILS 0.2 %; BASOPHILS ABSOLUTE 0.01 10/3/uL (0.0-0.16); EOSINOPHILS 5.4 %; EOSINOPHILS ABSOLUTE 0.28 10/3/uL (0.0-0.53); HEMATOCRIT 28.6 % (36.0-48.0); HEMOGLOBIN 8.6 g/dL (12.0-16.0); IMMATURE GRANULOCYTES 0.2 %; IMMATURE GRANULOCYTES ABSOLUTE 0.01 10/3/uL (0.0-0.11); LYMPHOCYTES 46.1 %; LYMPHOCYTES ABSOLUTE 2.39 10/3/uL (0.67-4.30); MEAN CORPUSCULAR VOLUME 83.1 fL (80-100); MEAN PLATELET VOLUME 9.9 fL (9.2-13.0); MONOCYTES 5.2 %; MONOCYTES ABSOLUTE 0.27 10/3/uL (0.21-1.20); NEUTROPHILS 42.9 %; NEUTROPHILS ABSOLUTE 2.22 10/3/uL (2.02-8.40); PLATELET COUNT 177 10/3/uL (150-400); RBC DISTRIBUTION WIDTH 15.6 % (12.0-16.0); RED CELL COUNT 3.44 10/6/uL (4.0-5.6); WHITE BLOOD CELLS 5.2 10/3/uL (4.5-10.5)
[2017-01-20 08:35] LABS: MEAN CORPUS HGB CONC 30.1 g/dL (32.0-36.0)
[2017-01-20 08:36] LABS: MANUAL DIFF NO %
[2017-01-21 06:28] LABS: BASOPHILS 0.2 %; BASOPHILS ABSOLUTE 0.01 10/3/uL (0.0-0.16); EOSINOPHILS ABSOLUTE 0.29 10/3/uL (0.0-0.53); HEMATOCRIT 29.2 % (36.0-48.0); HEMOGLOBIN 9.5 g/dL (12.0-16.0); LYMPHOCYTES 24.5 %; LYMPHOCYTES ABSOLUTE 1.41 10/3/uL (0.67-4.30); MEAN CORPUSCULAR HEMOGLOB 26.5 pg (26.0-34.0); MEAN CORPUSCULAR VOLUME 81.3 fL (80-100); MEAN PLATELET VOLUME 9.4 fL (9.2-13.0); MONOCYTES 6.6 %; MONOCYTES ABSOLUTE 0.38 10/3/uL (0.21-1.20); NEUTROPHILS 63.7 %; NEUTROPHILS ABSOLUTE 3.66 10/3/uL (2.02-8.40); PLATELET COUNT 175 10/3/uL (150-400); RBC DISTRIBUTION WIDTH 15.4 % (12.0-16.0); RED CELL COUNT 3.59 10/6/uL (4.0-5.6); WHITE BLOOD CELLS 5.8 10/3/uL (4.5-10.5)
[2017-01-21 06:30] LABS: MANUAL DIFF NO %; MEAN CORPUS HGB CONC 32.5 g/dL (32.0-36.0)
[2017-01-21 06:36] LABS: BUN (BLOOD UREA NITROGEN) 3 MG/DL (6-23); CHLORIDE, SERUM 110 MMOL/L (96-112); CO2 (CARBON DIOXIDE) 28 MMOL/L (24-34); CREATININE 0.68 MG/DL (0.55-1.02); GFR AFRICAN AMERICAN 122 ML/MIN (>=60); GFR NON AFRICAN AMERICAN 105 ML/MIN (>=60); GLUCOSE, SERUM 84 MG/DL (60-99); SODIUM, SERUM 145 MMOL/L (135-148)
[2017-01-22 06:46] LABS: ALBUMIN 2.6 G/DL (3.5-5.0); BUN (BLOOD UREA NITROGEN) 3 MG/DL (6-23); CALCIUM, SERUM 8.2 MG/DL (8.5-10.4); CHLORIDE, SERUM 106 MMOL/L (96-112); CO2 (CARBON DIOXIDE) 25 MMOL/L (24-34); CREATININE 0.64 MG/DL (0.55-1.02); GFR AFRICAN AMERICAN 124 ML/MIN (>=60); GFR NON AFRICAN AMERICAN 107 ML/MIN (>=60); PHOSPHORUS, SERUM 3.1 MG/DL (2.5-4.5); SODIUM, SERUM 143 MMOL/L (135-148)
[2017-01-22 06:50] LABS: GLUCOSE, SERUM 213 MG/DL (60-99)
== END 2017-01-22 11:47 | disposition home or self-care (01) | DRG 74 ==
LOC: ER 09:36 → 4SO 13:15
PROVIDERS: Emergency Medicine; Hospitalist; Internal Medicine
DX: E11.43 Type 2 diabetes mellitus with diabetic autonomic (poly)neuropathy (principal); E11.65 Type 2 diabetes mellitus with hyperglycemia; I10 Essential (primary) hypertension; K31.84 Gastroparesis; Z79.4 Long term (current) use of insulin; D63.8 Anemia in other chronic diseases classified elsewhere; E78.5 Hyperlipidemia, unspecified; Z90.710 Acquired absence of both cervix and uterus; Z90.49 Acquired absence of other specified parts of digestive tract; Z93.4 Other artificial openings of gastrointestinal tract status; Z79.891 Long term (current) use of opiate analgesic; F31.9 Bipolar disorder, unspecified; Z88.8 Allergy status to other drugs, medicaments and biological substances; Z88.2 Allergy status to sulfonamides; Z88.1 Allergy status to other antibiotic agents; Z88.5 Allergy status to narcotic agent; Z76.5 Malingerer [conscious simulation]; D50.9 Iron deficiency anemia, unspecified; G89.29 Other chronic pain; R10.9 Unspecified abdominal pain; R94.8 Abnormal results of function studies of other organs and systems
CPT/HCPCS: 71010; 74176; 80048; 80053; 80069; 80178; 81001; 82962; 83690; 83735; 84484; 85025; 85610; 85730; 93005; 96374; 96375; 99285; A9270-GY; C9113; J0456; J1170; J2405; J2550

== ENCOUNTER 2017-02-18 18:49 | Emergency (ER) | payer BC, MEDICARE ==
[2017-02-18 19:31] LABS: BASOPHILS 0.2 %; BASOPHILS ABSOLUTE 0.02 10/3/uL (0.0-0.16); EOSINOPHILS 1.9 %; EOSINOPHILS ABSOLUTE 0.18 10/3/uL (0.0-0.53); HEMATOCRIT 31.7 % (36.0-48.0); HEMOGLOBIN 10.5 g/dL (12.0-16.0); IMMATURE GRANULOCYTES 0.2 %; IMMATURE GRANULOCYTES ABSOLUTE 0.02 10/3/uL (0.0-0.11); LYMPHOCYTES 31.2 %; LYMPHOCYTES ABSOLUTE 2.91 10/3/uL (0.67-4.30); MEAN CORPUS HGB CONC 33.1 g/dL (32.0-36.0); MEAN CORPUSCULAR HEMOGLOB 26.3 pg (26.0-34.0); MEAN CORPUSCULAR VOLUME 79.4 fL (80-100); MEAN PLATELET VOLUME 10.5 fL (9.2-13.0); MONOCYTES 5.2 %; MONOCYTES ABSOLUTE 0.48 10/3/uL (0.21-1.20); NEUTROPHILS 61.3 %; NEUTROPHILS ABSOLUTE 5.71 10/3/uL (2.02-8.40); RBC DISTRIBUTION WIDTH 15.6 % (12.0-16.0); RED CELL COUNT 3.99 10/6/uL (4.0-5.6)
[2017-02-18 19:32] LABS: MANUAL DIFF NO %; PLATELET COUNT 257 10/3/uL (150-400); WHITE BLOOD CELLS 9.3 10/3/uL (4.5-10.5)
[2017-02-18 19:46] LABS: ALKALINE PHOSPHATASE 102 U/L (45-117); BUN (BLOOD UREA NITROGEN) 13 MG/DL (6-23); CALCIUM, SERUM 9.7 MG/DL (8.5-10.4); CHLORIDE, SERUM 97 MMOL/L (96-112); CO2 (CARBON DIOXIDE) 23 MMOL/L (24-34); CREATININE 1.21 MG/DL (0.55-1.02); GFR AFRICAN AMERICAN 62 ML/MIN (>=60); GFR NON AFRICAN AMERICAN 54 ML/MIN (>=60); POTASSIUM, SERUM 3.9 MMOL/L (3.5-5.3); SGOT(AST) 9 U/L (5-40); SGPT(ALT) 20 U/L (5-65); SODIUM, SERUM 130 MMOL/L (135-148); TOTAL BILIRUBIN 0.7 MG/DL (0-1.2)
[2017-02-18 19:47] LABS: GLUCOSE, SERUM 533 MG/DL (60-99)
[2017-02-18 20:52] LABS: ASCORBIC ACID (UR NOT ORDER) NEG (NEG); BILIRUBIN, URINE NEGATIVE (NEG); ER URINALYSIS TAT 0 Hrs 13 Mins; KETONE, URINE TRACE MG/DL (NEG); LEUKOCYTE ESTERASE(NOT OR NEG (NEG); NITRITE (URINE) NEG (NEG); WBC (NOT ORDERED) (RFLEX) 3 (0-5)
== END 2017-02-18 22:34 | disposition home or self-care (01) ==
LOC: ER 18:49
PROVIDERS: Hospitalist
DX: E11.43 Type 2 diabetes mellitus with diabetic autonomic (poly)neuropathy (principal); E11.65 Type 2 diabetes mellitus with hyperglycemia; K31.84 Gastroparesis; I10 Essential (primary) hypertension; D64.9 Anemia, unspecified; F31.9 Bipolar disorder, unspecified; Z88.6 Allergy status to analgesic agent; Z88.8 Allergy status to other drugs, medicaments and biological substances; Z88.1 Allergy status to other antibiotic agents; Z88.2 Allergy status to sulfonamides; Z88.5 Allergy status to narcotic agent; Z79.899 Other long term (current) drug therapy; Z79.4 Long term (current) use of insulin
CPT/HCPCS: 74022; 80053; 80178; 81001; 82009; 82962; 83690; 85025; 87493; 87493-59; 96374; 96375; 99284; A9270-GY; J1170; J2405; J2550

== ENCOUNTER 2017-04-04 02:19 | Emergency (ER) | payer BC, MEDICARE | END 2017-04-04 03:02 | disposition left against medical advice (07) | LOC: ER 02:19 | DX: R10.819 Abdominal tenderness, unspecified site (principal); I10 Essential (primary) hypertension; F32.9 Major depressive disorder, single episode, unspecified; E11.43 Type 2 diabetes mellitus with diabetic autonomic (poly)neuropathy; K31.84 Gastroparesis; D64.9 Anemia, unspecified; Z76.5 Malingerer [conscious simulation]; Z90.710 Acquired absence of both cervix and uterus; Z90.89 Acquired absence of other organs; Z90.49 Acquired absence of other specified parts of digestive tract; Z88.5 Allergy status to narcotic agent; Z88.8 Allergy status to other drugs, medicaments and biological substances; Z88.2 Allergy status to sulfonamides; Z88.1 Allergy status to other antibiotic agents; Z79.4 Long term (current) use of insulin; Z79.899 Other long term (current) drug therapy | CPT/HCPCS: 80048; 80076; 83605; 83690; 83735; 84484; 85025; 85610; 85730; 99285 ==